=== PATIENT | female | born 1980 | race American Indian/Alaskan Native ===

== ENCOUNTER 2019-01-10 10:57 | Emergency (ER) | payer MEDICAID ==
[2019-01-10 11:34] VITALS: RESP 16
--- NOTE | 2019-01-10 11:43 | ED PDOC ---
Arrival/HPI - General Historian: Patient - History of Present Illness Narrative History of Present Illness (Text): 01/10/19 11:37 38F w/ a PMH of HTN presenting w/ complaints of headache/ dizziness. Patient reported that she has not had her BP Rx (Losartan/HCTZ) since the past two days. Patient reported that she has been unable to get her medication due to inability to receive BP refills as she has not seen her primary (Dr. Galvan) in over 6mo due to inability to take off from work. Patient states that typically when she does nto take her BP rx she begins having headaches /dizziness. At time of evaluation patient denies any chest pain, palpitations, sob, visual disturbances/ blurry vision, abd pain, n/v/d/c, urinary discomfort. Time/Duration: Prior to Arrival, 1-3 hours Symptom Onset: Gradual Symptom Course: Worsening Quality: Aching <Dl Church - Last Filed: 01/10/19 13:28> <Osvaldo Early DO - Last Filed: 01/10/19 21:09> - General Chief Complaint: Headache Time Seen by Provider: 01/10/19 11:37 Past Medical History - Provider Review Nursing Documentation Reviewed: Yes - Infectious Disease Hx of Infectious Diseases: None - Reproductive Menopause: No - Cardiac Hx Hypertension: Yes - Gastrointestinal Other/Comment: GALLBLADER REMOVAL 15 YEARS AGO , TUBAL LIGATION 7 YEARS AGO - Genitourinary/Gynecological Hx Genitourinary Disorders: No Hx Bladder Cancer: No Hx Bladder Stone: No Hx Cervical Cancer: No Hx Hematuria: No Hx Incontinence: No Hx Ovarian Cancer: No - Psychiatric Hx Psychophysiologic Disorder: No Hx Substance Use: No - Anesthesia Hx Anesthesia: No Hx Anesthesia Reactions: No Hx Malignant Hyperthermia: No <Dl Church - Last Filed: 01/10/19 13:28> Family/Social History - Physician Review Nursing Documentation Reviewed: Yes Family/Social History: Unknown Family HX Smoking Status: Current Some Days Smoker Hx Alcohol Use: No Hx Substance Use: No <Dl Church - Last Filed: 01/10/19 13:28> Allergies/Home Meds <Dl Church - Last Filed: 01/10/19 13:28> <Osvaldo Early DO - Last Filed: 01/10/19 21:09> Allergies/Adverse Reactions: Allergies No Known Allergies Allergy (Verified 01/10/19 11:13) Home Medications: Home Meds Medication Instructions Recorded Confirmed HCTZ/Losartan Potassium [Hyzaar 25 mg PO DAILY 01/10/19 01/10/19 12.5 mg-50 mg] Review of Systems - Review of Systems Constitutional: Normal Eyes: Normal. absent: Vision Changes, Photophobia, Eye Pain ENT: Normal Respiratory: Normal. absent: SOB Cardiovascular: Normal. absent: Chest Pain, Palpitations Gastrointestinal: Normal Genitourinary Female: Normal Musculoskeletal: Normal Skin: Normal Neurological: Headache, Dizziness Endocrine: Normal Hemo/Lymphatic: Normal Psychiatric: Normal <Dl Church - Last Filed: 01/10/19 13:28> Physical Exam Vital Signs Temp Pulse Resp BP Pulse Ox 01/10/19 11:33 71 16 179/112 H 96 01/10/19 11:05 97.3 F L 79 18 171/131 H 98 Temperature: Afebrile Blood Pressure: Hypertensive Pulse: Regular Respiratory Rate: Normal Appearance: Positive for: Well-Appearing, Non-Toxic, Comfortable Pain Distress: None Mental Status: Positive for: Alert and Oriented X 3 - Systems Exam Head: Present: Atraumatic, Normocephalic Pupils: Present: PERRL Extroacular Muscles: Present: EOMI Conjunctiva: Present: Normal Mouth: Present: Moist Mucous Membranes Neck: Present: Normal Range of Motion Respiratory/Chest: Present: Clear to Auscultation, Good Air Exchange. No: Respiratory Distress, Accessory Muscle Use Cardiovascular: Present: Regular Rate and Rhythm, Normal S1, S2. No: Murmurs Abdomen: No: Tenderness, Distention, Peritoneal Signs Back: Present: Normal Inspection Upper Extremity: Present: Normal Inspection. No: Cyanosis, Edema Lower Extremity: Present: Normal Inspection. No: Edema Neurological: Present: GCS=15, CN II-XII Intact, Speech Normal Skin: Present: Warm, Dry, Normal Color. No: Rashes Psychiatric: Present: Alert, Oriented x 3, Normal Insight, Normal Concentration <Dl Church - Last Filed: 01/10/19 13:28> Vital Signs Temp Pulse Resp BP Pulse Ox 01/10/19 11:33 71 16 179/112 H 96 01/10/19 11:05 97.3 F L 79 18 171/131 H 98 <Sharath ANNOsvaldo - Last Filed: 01/10/19 21:09> Medical Decision Making ED Course and Treatment: 01/10/19 11:44 Impression: 38F w/ a PMH of HTN complaining of headache/ dizziness found to be hypertensive on evaluation. Symptomatic HTN 2/2 medication non compliance Plan: R/o end organ damage Lower blood pressure CBC/CMP CARDIAC ISO MAG/PHOS EKG CXR Progress Notes: 01/10/19 13:05 Patient given nsaid for headache CBC/CMP - Hypokalemic w/ elevated CK Will replete K+ No obvious source of CK elevated; would advise recheck on outpt follow up Agreeable for follow up w/ [facility] w/ Dr. Perez Will DC Home w/ limited supply of HCTZ - RAD Interpretation Radiology Orders: 01/10/19 11:36 CHEST PORTABLE [RAD] Stat - EKG Interpretation EKG Interpretation (Text): 01/10/19 11:47 NSR HR 62; QTc 450; Normoaxis; No ST/T wave abnormalities Interpreted by ED Physician: Yes Type: 12 lead EKG <Dl Church - Last Filed: 01/10/19 13:28> ED Course and Treatment: 38 year old F presents to the Emergency department complaining of headache and dizziness. In agreement with resident note which contains more details about the patient. Patient seen and evaluated with resident. Came up with plan and treatment together. 01/10/19 13:12 - Lab Interpretations Lab Results: Troponin I < 0.01 ng/mL 01/10/19 11:50 Total Bilirubin 0.6 mg/dL (0.2-1.3) 01/10/19 11:50 AST 34 U/L (14-36) 01/10/19 11:50 ALT 16 U/L (7-56) 01/10/19 11:50 Alkaline Phosphatase 74 U/L (38-126) 01/10/19 11:50 Total Protein 8.0 g/dL (5.8-8.3) 01/10/19 11:50 Albumin 4.0 g/dL (3.0-4.8) 01/10/19 11:50 Globulin 4.0 gm/dL 01/10/19 11:50 Albumin/Globulin Ratio 1.0 (1.1-1.8) L 01/10/19 11:50 - RAD Interpretation Radiology Orders: 01/10/19 11:36 CHEST PORTABLE [RAD] Stat - Medication Orders Current Medication Orders: Discontinued Medications Ibuprofen (Motrin Tab) 600 mg PO STAT STA Stop: 01/10/19 12:09 Last Admin: 01/10/19 12:23 Dose: 600 mg MAR Pain/Vitals Document 01/10/19 12:23 MA (Rec: 01/10/19 12:24 MA [id number]) Pain Reassessment Is This A Pain ReAssessment? Yes Sleep Is patient sleeping during reassessment? No Presence of Pain Presence of Pain Yes Pain Scale Used Protocol: PSCALES Pain Scale Used Numeric Location Pain Location [employer] Description Constant Intensity 2 Scale Used Numeric Pain Behavior Irritability Potassium Chloride (Potassium Chloride Oral Soln) 40 meq PO STAT STA Stop: 01/10/19 12:19 Last Admin: 01/10/19 12:24 Dose: 40 meq <Osvaldo Early DO - Last Filed: 01/10/19 21:09> - PA / MERCHANDISE CLERK / Resident Statement RICHARD has reviewed & agrees with the documentation as recorded. / has examined the patient and agrees with the treatment plan. - Scribe Statement The provider has reviewed the documentation as recorded by the [employer] Kidd training with Jud All medical record entries made by the Koko were at my direction and pe rsonally dictated by me. I have reviewed the chart and agree that the record accurately reflects my personal performance of the history, physical exam, medical decision making, and the department course for this patient. I have also personally directed, reviewed, and agree with the discharge instructions and disposition. <Osvaldo Early DO - Last Filed: 01/10/19 21:09> Disposition/Present on Arrival - Present on Arrival Any Indicators Present on Arrival: No History of DVT/PE: No History of Uncontrolled Diabetes: No Urinary Catheter: No History of Decub. Ulcer: No History Surgical Site Infection Following: None - Disposition Have Diagnosis and Disposition been Completed?: Yes Disposition Time: 13:43 Patient Plan: Discharge <Dl Church - Last Filed: 01/10/19 13:28> - Present on Arrival Any Indicators Present on Arrival: No - Disposition Have Diagnosis and Disposition been Completed?: Yes Disposition Time: 12:40 <Sharath Osvaldo - Last Filed: 01/10/19 21:09> - Disposition Diagnosis: Hypertension Disposition: HOME/ ROUTINE Condition: GOOD Discharge Instructions (ExitCare): High Blood Pressure in Adults Additional Instructions: JESSICA BLEVINS, thank you for letting us take care of you today. The emergency medical care you received today was directed at your acute symptoms. If you were prescribed any medication, please fill it and take as directed. It may take several days for your symptoms to resolve. Return to the Emergency Department if your symptoms worsen, do not improve, or if you have any other problems. Please contact your doctor or call one of the physicians/clinics you have been referred to that are listed on the Patient Visit Information form that is included in your discharge packet. Bring any paperwork you were given at discharge with you along with any medications you are taking to your follow up visit. Our treatment cannot replace ongoing medical care by a primary care provider outside of the emergency department. Thank you for allowing the [facility] team to be part of your care today. Follow up with your primary care doctor or our clinic in 2-3 days for re- evaluation and further management. Prescriptions: hydroCHLOROthiazide [Microzide] 12.5 mg PO DAILY #7 cap Referrals: [facility] [Outside] - Follow up with primary Giuliano Galvan Jr., MD [Primary Care Provider] - Follow up with primary Gracie Perez MD [Medical Doctor] - Follow up with primary Forms: [employer] (Belgian), WORK NOTE
[2019-01-10 12:14] LABS: BASO # 0.03 K/mm3 (0.0-2.0); BASO % 0.4 % (0.0-3.0); EOS # 0.3 (0.0-0.7); EOS % 3.7 % (1.5-5.0); HEMOGLOBIN 12.7 g/dL (12.0-16.0); LYMPH # 2.8 (1.2-3.4); LYMPH % 40.6 % (22.0-35.0); MEAN CELL VOLUME 87.1 fl (80.0-105.0); MEAN CORPUSCULAR HEMOGLOBIN 29.3 pg (25.0-35.0); MEAN CORPUSCULAR HGB CONC 33.6 g/dl (31.0-37.0); MEAN PLATELET VOLUME 9.8 fl (7.0-11.0); MONO # 0.3 (0.1-0.6); MONO % 4.3 % (1.0-6.0); RBC 4.34 10^6/uL (3.5-6.1)
[2019-01-10 12:17] LABS: ALT/SGPT 16 U/L (7-56); AST/SGOT 34 U/L (14-36); BLOOD UREA NITROGEN 11 mg/dL (7-21); CALCIUM 8.9 mg/dL (8.4-10.5); GFR NON-AFRICAN AMERICAN > 60
[2019-01-10] MEDS ORDERED: Potassium Chloride 40 mEq/30 ml LIQ UD PO STA (12:18)
[2019-01-10 12:28] LABS: TROPONIN I < 0.01 ng/mL
[2019-01-10 12:34] LABS: CK-MB 1.7 ng/mL (0.0-3.6)
--- NOTE | 2019-01-10 13:20 | RAD ---
Date of service: 01/10/2019 HISTORY: r/o infiltrate COMPARISON: No prior. FINDINGS: LUNGS: No active pulmonary disease. PLEURA: No significant pleural effusion identified, no pneumothorax apparent. CARDIOVASCULAR: No aortic atherosclerotic calcification present. Normal cardiac size. No pulmonary vascular congestion. OSSEOUS STRUCTURES: No significant abnormalities. VISUALIZED UPPER ABDOMEN: Normal. OTHER FINDINGS: None. IMPRESSION: No active disease.
[2019-01-10 13:46] VITALS: BP 170/110; PULSE 75; TEMP 98.1; O2SAT 97
--- NOTE | 2019-01-10 23:04 | CARD ---
APPROVED REPORT Date of service: 01/10/2019 EKG Measurement Heart [id number] <Conclusion> Normal sinus rhythm Minor NDSTT abnormalities [facility] ECG
== END 2019-01-10 13:30 | disposition home or self-care (01) ==
LOC: ED 10:57
DX: I10 Essential (primary) hypertension (principal); F17.210 Nicotine dependence, cigarettes, uncomplicated; Z91.14 Patient's other noncompliance with medication regimen
CPT/HCPCS: 71045; 80053; 82550; 82553; 83615; 83735; 84484; 85025; 93005; 99282; J3480